=== PATIENT | male | born 1955 | race Caucasian/White ===

== ENCOUNTER 2019-04-13 12:08 | Emergency (ER) | payer MEDICARE, OTHER ==
[2019-04-13 16:09] LABS: ABS Basophils 0.1 10^3/ul (0-0.2); ABS Eosinophils 0.2 10^3/ul (0-0.6); ABS Lymphocytes 2.9 10^3/ul (1.0-4.8); ABS Monocytes 0.6 10^3/ul (0-0.8); ABS Neutrophils 4.6 10^3/ul (1.5-7.7); Eosinophil % 2.9 %; Hematocrit 43 % (42-52); Hemoglobin 15.1 g/dL (14.0-18.0); Lymphocyte % 34.5 %; Mean Corpuscular HGB Conc 35 g/dL (31-36); Mean Corpuscular Hemoglobin 33 pg (27-31); Mean Corpuscular Volume 93 fL (80-94); Mean Platelet Volume 6.9 fL (7.4-10.4); Nucleated Red Blood Cells % 0.1; Platelet Count 252 10^3/uL (150-450); Red Blood Count 4.65 10^6 /uL (4.18-5.48); Red Cell Distribution Width 16 % (10-15); White Blood Count 8.4 10^3/uL (3.5-10.8)
--- NOTE | 2019-04-13 16:30 | ED ---
Complex/Multi-Sys Presentation - HPI Summary HPI Summary: This pt is a 64 y/o M presenting to [facility] with a CC of a large amount of weight gain since Thursday04/06/19. He has been gaining weight all month but it has increased over the past week. On Thursday04/10/19 the pt fell and grabbed the fire pit to break his fall. Later that night he felt fatigued and then developed neck pain which is rated a 7/10 in severity. He has swelling in his neck, arms and legs. The pt stated that the swelling in his legs and arms are the worse. He denies any N/V/D, CP, abdominal pain, fevers, and chills. He has no aggravating and alleviating symptoms. He has a PMHx of chronic SOB. - History Of Current Complaint Chief Complaint: EDNeckComplaint Time Seen by Provider: 04/13/19 15:07 Hx Obtained From: Patient Onset/Duration: Gradual Onset, Lasting Weeks - weight gain has exsisted for around a month, Still Present, Worse Since - 04/06/19 Timing: Constant Severity Currently: Moderate Severity Initially: Mild Location: Pain At: - neck since yesterday 04/12/19, rated a 7/10 Character: Typical Headache Aggravating Factor(s): nothing Alleviating Factor(s): nothing Associated Signs And Symptoms: Positive: Confusion, Dizziness, Headache, SOB - chronic, Other - POSITIVE: feels like thought process is off, numbness radiating down upper body, blurry vision, decreased sense of balance, swelling in his neck, arm, and legs. Negative: Chest Pain, Nausea, Vomiting, Diarrhea, Abdominal Pain, Fever - Allergies/Home Medications Allergies/Adverse Reactions: Allergies Allergy/AdvReac Type Severity Reaction Status Date / Time acetaminophen Allergy GI Upset Verified 04/13/19 12:19 [From Darvocet-N] meperidine [From Demerol] Allergy GI Upset Verified 04/13/19 12:19 propoxyphene Allergy GI Upset Verified 04/13/19 12:19 [From Darvocet-N] Home Medications: Home Medications Albuterol HFA INHALER* [Ventolin HFA Inhaler*] 1 puff INH Q6H PRN 04/13/19 [ History Confirmed 04/13/19] Apixaban* [Eliquis*] 5 mg PO BID 04/13/19 [History Confirmed 04/13/19] Aspirin EC TAB* [Ecotrin EC Low Dose 81 MG*] 81 mg PO DAILY 04/13/19 [History Confirmed 04/13/19] Gabapentin CAP(*) [Neurontin 100 mg CAP(*)] 400 mg PO TID 04/13/19 [History Confirmed 04/13/19] Isosorbide Mononitrate ER TAB* [Imdur ER TAB*] 30 mg PO DAILY 04/13/19 [History Confirmed 04/13/19] Methimazole TAB* [Tapazole TAB*] 10 mg PO BID 04/13/19 [History Confirmed ] Omeprazole CAP (NF) [Prilosec CAP* 20 MG] 20 mg PO BID 04/13/19 [History Confirmed 04/13/19] Rosuvastatin (NF) [Crestor] 20 mg PO DAILY 04/13/19 [History Confirmed 04/13/19] Spironolactone TAB* [Aldactone TAB*] 25 mg PO DAILY 04/13/19 [History Confirmed 04/13/19] Tiotropium Brom/Olodaterol(NF) [Stiolto Respimat Inh [place] (60 puff)(NF)] 1 puff INH BID 04/13/19 [History Confirmed 04/13/19] PMH/Surg Hx/FS Hx/Imm Hx Previously Healthy: No Endocrine/Hematology History: Reports: Hx Thyroid Disease - dx 2013, appt today to discuss Denies: Hx Diabetes Cardiovascular History: Reports: Hx Angina, Hx Hypertension Respiratory History: Reports: Hx Sleep Apnea Denies: Hx Asthma, Hx Chronic Obstructive Pulmonary Disease (COPD) GI History: Reports: Hx Gastroesophageal Reflux Disease, Hx Ulcer History: Reports: Other Problems/Disorders - nocturnal frequency Musculoskeletal History: Reports: Hx Back Problems Sensory History: Reports: Hx Contacts or Glasses Opthamlomology History: Reports: Hx Contacts or Glasses - Surgical History Surgery Procedure, Year, and Place: cardiac cath w/ stents April 2013 Hx Anesthesia Reactions: No - Immunization History Date of Tetanus Vaccine: Unknown Date of Influenza Vaccine: unknown Immunizations Up to Date: Yes Infectious Disease History: No Infectious Disease History: Denies: Hx Hepatitis, Hx Human Immunodeficiency Virus (HIV), Traveled Outside the [place] in Last 30 Days - Family History Known Family History: Positive: Hypertension - Social History Alcohol Use: None Hx Substance Use: No Substance Use Type: Reports: None Hx Tobacco Use: Yes Smoking Status (MU): Former Smoker Type: eCigarettes Amount Used/How Often: Less then 1/2 PPD Length of Time of Smoking/Using Tobacco: quit cigarettes 2 months ago; using electronic cigarettes currently Have You Smoked in the Last Year: No Review of Systems Positive: Other - Positive: decreased sense of balance. Negative: Fever, Chills Positive: Blurred Vision Positive: Other - Neck pain Negative: Chest Pain Positive: Shortness Of Breath - Chronic Negative: Abdominal Pain, Vomiting, Diarrhea, Nausea Positive: Edema - Arms, legs, neck Neurological: Other - POSITVIE: dizziness Positive: Headache, Numbness - radiates down his upper body bilaterally All Other Systems Reviewed And Are Negative: Yes Physical Exam - Summary Physical Exam Summary: Constitutional: Well-developed, Well-nourished, Alert. (-) Distressed Skin: Warm, Dry HENT: Normocephalic; Atraumatic Eyes: Conjunctiva normal Neck: Musculoskeletal ROM normal neck. (-) JVD, (-) Stridor, (-) Tracheal deviation Cardio: Rhythm regular, rate normal, Heart sounds normal; Intact distal pulses; The pedal pulses are 2+ and symmetric. Radial pulses are 2+ and symmetric. (-) Murmur Pulmonary/Chest wall: Effort normal. (-) Respiratory distress, (-) Wheezes, (-) Rales Abd: Soft, (-) tenderness, (-) Distension, (-) Guarding, (-) Rebound Musculoskeletal: Edema of arms and 1+ pitting edema of the legs, C6 and T1-4 tenderness to palpation, Bilateral posterior neck muscle wall is tender to palpation Lymph: (-) Cervical adenopathy Neuro: Alert, Oriented x3 Psych: Mood and affect Normal Triage Information Reviewed: Yes Vital Signs On Initial Exam: Initial Vitals Temp Pulse Resp BP Pulse Ox 97.8 F 68 16 112/80 96 04/13/19 12:13 04/13/19 12:13 04/13/19 12:13 04/13/19 12:13 04/13/19 12:13 Vital Signs Reviewed: Yes Diagnostics - Vital Signs Vital Signs Temp Pulse Resp BP Pulse Ox 04/13/19 14:30 98 F 61 16 96/58 97 04/13/19 12:13 97.8 F 68 16 112/80 96 - Laboratory Lab Results: Lab Results 04/13/19 Range/Units 16:01 WBC 8.4 (3.5-10.8) 10^3/uL RBC 4.65 (4.18-5.48) 10^6 /uL Hgb 15.1 (14.0-18.0) g/dL Hct 43 (42-52) % MCV 93 (80-94) fL MCH 33 H (27-31) pg MCHC 35 (31-36) g/dL RDW 16 H (10-15) % Plt Count 252 (150-450) 10^3/uL MPV 6.9 L (7.4-10.4) fL Neut % (Auto) 55.0 % Lymph % (Auto) 34.5 % [place] % (Auto) 6.8 % Eos % (Auto) 2.9 % Baso % (Auto) 0.8 % Absolute Neuts (auto) 4.6 (1.5-7.7) 10^3/ul Absolute Lymphs (auto) 2.9 (1.0-4.8) 10^3/ul Absolute Monos (auto) 0.6 (0-0.8) 10^3/ul Absolute Eos (auto) 0.2 (0-0.6) 10^3/ul Absolute Basos (auto) 0.1 (0-0.2) 10^3/ul Absolute Nucleated RBC 0.0 10^3/ul Nucleated RBC % 0.1 Result Diagrams: 04/13/19 16:01 04/13/19 16:01 Lab Statement: Any lab studies that have been ordered have been reviewed, and results considered in the medical decision making process. - Radiology Thoacic Spine X-Ray Radiology Interpretation Completed By: Radiologist Summary of Radiographic Findings: DEGENERATIVE DISC DISEASE. THE VERTEBRAL BODIES ARE PRESERVED IN HEIGHT. ED physician has reviewed this report. CXR Radiology Interpretation Completed By: Radiologist Summary of Radiographic Findings: NO EVIDENCE FOR ACTIVE CARDIOPULMONARY DISEASE. ED physician has reviewed this report. - CT Cervical Spine CT CT Interpretation Completed By: Radiologist Summary of CT Findings: 1. DEGENERATIVE DISC DISEASE AND OSTEOARTHRITIS. 2. THERE IS MULTILEVEL NEUROFORAMINAL NARROWING DESCRIBED ABOVE. 3. THERE IS MILD NARROWING OF THE CENTRAL CANAL AT C4-C5. 4. NO ACUTE OSSEOUS INJURY TO THE CERVICAL SPINE. ED Physician has reviewed this report. Brain CT CT Interpretation Completed By: Radiologist Summary of CT Findings: NO EVIDENCE FOR ACUTE INTRACRANIAL ABNORMALITY. ED physician has reviewed this report. Head CT CT Interpretation Completed By: Radiologist Summary of CT Findings: No acute findings. ED physician has reviewed this report. - EKG 1642 Cardiac Rate: NL - 62 bpm EKG Rhythm: Atrial Fibrillation Summary of EKG Findings: AFIB at 62 bpm, prolonged QRS, prolonged QTc, normal axis, normal ST, flattened T-waves in V6. Overall: AFIB non-specific. Interpreted by Dr. Wadsworth at 1642 04/13/19. Re-Evaluation - Re-Evaluation First Eval Re-Evaluation Time: 20:18 Change: Improved Comment: Pt was informed of his imaging results and lab vaules. He will be discharged with a Dx of a neck sprain and SOB. The pt and his are agreeable. Complex Multi-Symp Course/Dx Course Of Treatment: This pt is a 64 y/o M presenting to [facility] with a CC of a large amount of weight gain since Thursday04/06/19. He has been gaining weight all month but it has increased over the past week. On Thursday04/10/19 the pt fell and grabbed the fire pit to break his fall. Later that night he felt fatigued and then developed neck pain which is rated a 7/10 in severity. Upon PE the pt is found to have Edema of arms and 1+ pitting edema of the legs, C6 and T1-4 tenderness to palpation, and bilateral posterior neck muscle wall is tender to palpation. The pt received the following imaging reports during his ED course: Thoracic Spine X-Ray which found: DEGENERATIVE DISC DISEASE. THE VERTEBRAL BODIES ARE PRESERVED IN HEIGHT. CXR: NO EVIDENCE FOR ACTIVE CARDIOPULMONARY DISEASE. Cervical Spine CT: 1. DEGENERATIVE DISC DISEASE AND OSTEOARTHRITIS. 2. THERE IS MULTILEVEL NEUROFORAMINAL NARROWING DESCRIBED ABOVE. 3. THERE IS MILD NARROWING OF THE CENTRAL CANAL AT C4-C5. 4. NO ACUTE OSSEOUS INJURY TO THE CERVICAL SPINE. Brain CT: NO EVIDENCE FOR ACUTE INTRACRANIAL ABNORMALITY. Head CT: No acute findings. EKG showed AFIB at 62 bpm, prolonged QRS, prolonged QTc, normal axis, normal ST, flattened T-waves in V6. Overall: AFIB non-specific. The pt will be discharged with SOB, hyperthyroidism, and a neck sprain since all of his imaging came back negative. The pt had a high TSH value which coincides with his chronic issues. 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 - Billing Disposition and Condition Condition: STABLE Disposition: Home - Attestation Statements Document Initiated by Mariana: Yes Documenting Scribe: Surjit Sorenson Provider For Whom Mariana is Documenting (Include Credential): Luz De Guzman MD Scribe Attestation: ISurjit, scribed for Luz Wadsworth MD on 04/13/19 at 2229. Scribe Documentation Reviewed: Yes Provider Attestation: The documentation as recorded by the Surjit donald accurately reflects the service I personally performed and the decisions made by me, Luz Wadsworth MD Status of Scribe Document: Viewed
[2019-04-13 16:55] LABS: Albumin 4.4 g/dL (3.2-5.2); Albumin/Globulin Ratio 2.1 (1-3); Calcium 9.4 mg/dL (8.6-10.3); EGFR African American 103.5 (>60); EGFR Non-African American 85.5 (>60); Globulin 2.1 g/dL (2-4); Potassium 4.5 mmol/L (3.5-5.0); Total Bilirubin 0.6 mg/dL (0.2-1.0); Total Protein 6.5 g/dL (6.4-8.9)
[2019-04-13 16:57] LABS: TSH (Thyroid Stimulating Horm) 37.38 mcIU/mL (0.34-5.60)
[2019-04-13] MEDS: Iohexol 350* (CONTRAST) 500 ML MDV IV ONE (18:55)
[2019-04-13 21:14] VITALS: BP 120/92
== END 2019-04-13 21:13 | disposition home or self-care (01) ==
LOC: ED 12:08
DX: S16.1XXA Strain of muscle, fascia and tendon at neck level, initial encounter (principal); R06.02 Shortness of breath; W19.XXXA Unspecified fall, initial encounter; E07.9 Disorder of thyroid, unspecified; I10 Essential (primary) hypertension; Z87.891 Personal history of nicotine dependence; Z79.899 Other long term (current) drug therapy; M51.34 Other intervertebral disc degeneration, thoracic region; M50.30 Other cervical disc degeneration, unspecified cervical region; M47.892 Other spondylosis, cervical region
CPT/HCPCS: 36415; 70450; 70496; 70498; 71045; 72070; 72125; 80053; 83605; 83880; 84443; 84484; 85025; 93005; 99283; Q9967

== ENCOUNTER 2019-07-13 07:59 | Emergency (ER) | payer MEDICARE ==
[2019-07-13] MEDS: Albuterol/Ipratropium NEB.SOL* Albuterol 2.5 MG/Ipratropium 0.5 MG 3 ML INH SCH ×3 (08:00→08:40)
[2019-07-13] MEDS ORDERED: NS 0.9% 1000 ML** 1,000 ML IV ONE (08:01)
[2019-07-13] MEDS ORDERED: methylPREDNISolone 125 MG* 2 ML VIAL IV ONE (08:01)
[2019-07-13] MEDS ORDERED: Albuterol/Ipratropium NEB.SOL* Albuterol 2.5 MG/Ipratropium 0.5 MG 3 ML ONE (08:01)
--- OUTSIDE RECORDS SUMMARY | 2019-07-13 08:18 | XMS REPORT | Continuity of Care Document ---
:1955 External Reference #:[id number] Author Name Triston Jara M.D. Address [address] [place] [address] Care Team Providers Name Role Phone Ethan Davis MD - Internal Care Team Information Stave Hewer [phone] Medicine Problems Active Problems Provider Date Essential hypertension Triston Jara M.D. Onset: 06/26/2015 Recurrent cholesteatoma of mastoid Triston Jara M.D. Onset: 2018 cavity Recurrent cholesteatoma of mastoid Triston Jara M.D. Onset: 2015 cavity Perforation of tympanic membrane Triston Jara M.D. Onset: 06/26/2015 Chronic mastoiditis Triston Jara M.D. Onset: 06/26/2015 Social History Type Date Description Comments Sex Unknown Tobacco Use Start: Unknown Current Cigarette Smoker 5-10 Cigarettes Daily Tobacco Use Start: Unknown has been off and on for years Smoking Status Reviewed: 07/11/19 has been off and on for years Tobacco Use Start: Unknown Never Smoked Cigars Tobacco Use Start: Unknown Never Smoked A Pipe Smokeless Tobacco Never Used Smokeless Tobacco ETOH Use Currently rarely consumes alcohol Tobacco Use Start: Unknown Patient is a current smoker, smokes every day Allergies, Adverse Reactions, Alerts Description No Known Drug Allergies Medications Active Medications SIG Qnty Indications Ordering Provider Date Aspirin Low Dose 1 by mouth every Darlow, Juni 81mg Tablets day M.D. Atorvastatin Calcium 1 by mouth every Darlow, Juni 20mg day M.D. Tablets Carvedilol 2 by mouth every Darlow, Juni 6.25mg Tablets day M.D. Cymbalta 1 by mouth every Darlow, Juni 60mg Caps DR Part day M.D. Lisinopril 1 by mouth every Darlow, Juni 10mg Tablets day M.D. [facility] Caps[facility] M.D. Spironolactone 1 by mouth every Darlow, Juni 25mg Tablets day M.D. Pepcid [facility] 20[facility] Tablets a day M.D. Nitroglycerin ER as needed [facility], Juni 0.4mg M.D. Capsules ER Methimazole Unknown 10mg Tablets Gabapentin Unknown 400mg Capsules Baclofen Unknown 10mg Tablets Immunizations CPT Code Status Date Vaccine Lot # [id number] Given Unknown Influenza Virus Vaccine, 3 Years Of Age And Above, Intramuscular Vital Signs Date Vital Result Comment 08/13/2016 3:15pm BP Systolic 149 mmHg BP Diastolic 92 mmHg Heart Rate 70 /min Respiratory Rate 17 /min Weight 191.00 lb Weight 86.638 kg Height 72 inches 6'0" Height in cm's 182.9 cm BMI (Body Mass Index) 25.9 kg/m2 06/26/2015 4:01pm BP Systolic 133 mmHg BP Diastolic 86 mmHg Heart Rate 69 /min Respiratory Rate 17 /min Weight 191.00 lb Weight 86.638 kg Height 72 inches 6'0" Height in cm's 182.9 cm BMI (Body Mass Index) 25.9 kg/m2 Results Description No Information Available Procedures Date Code Description Status 07/11/2019 98303 Debridement Of Mastoid Cavity, Simple Completed Medical Devices Description No Information Available Encounters Description No Information Available Assessments Date Code Description Provider 07/11/2019 H95.01 Recurrent cholesteatoma of Triston Jara M.D. postmastoidectomy cavity, right ear 07/11/2019 H91.93 Unspecified hearing loss, bilateral Triston Jara M.D. Plan of Treatment 07/11/2019 - Triston Jara M.D.H95.01 Recurrent cholesteatoma of postmastoidectomy cavity, right earComments:I debrided the right mastoid without difficulty.H91.93 Unspecified hearing loss, bilateralComments:The patient has been having progressive hearing loss. Our last test was in 1999. I suspect the majority of his further loss is from sensorineural loss bu there could be a conductive component in the right side as well. I will order an audiogram.Follow up: for ALEJANDRA next available. Functional Status Description No Information Available Mental Status Description No Information Available Referrals Description No Information Available
--- OUTSIDE RECORDS SUMMARY | 2019-07-13 08:19 | XMS REPORT | Continuity of Care Document ---
:1955 External Reference #:[id number] Author Name Jimbo Pastora Care Team Providers Name Role Phone Ethan Davis MD Primary Care Physician Unavailable Payers Date Identification Numbers Payment Provider Subscriber Policy Number: [id number] [employer] Philip Montenegro Group Number: [id number] [address] PayID: [id number] [place] [address] Effective: 2014 Policy Number: [id number] [facility] Medicare Solutions Philip Montenegro Expires: 2018 Group Number: [id number] [address] [address] PayID: [id number] [place] [address] Problems Active Problems Provider Date Coronary arteriosclerosis Franchesca Hahn D.O. Onset: 07/09/2011 Old myocardial infarction Franchesca Hahn D.O. Onset: 10/29/2011 Essential hypertension Torrie Jay, N.PKelli Onset: 04/05/2012 Mixed hyperlipidemia Torrie Jay, N.PKelli Onset: 04/05/2012 Coronary arteriosclerosis Franchesca Hahn D.O. Onset: 10/05/2012 Acute myocardial infarction of inferior Franchesca Hahn D.O. Onset: 2012 [facility] ECHO Schedule Onset: 11/18/2013 Family History Date Family Member(s) Observation Comments Father due to Accident () - auto Father due to Hypertension () Father due to pacemaker () Father due to Arthritis () Father due to Cancer () Mother due to Diabetes () Mother due to DC () - age 58 yrs Mother due to hyperlipidemia () First Son parapalegic Second Son Alive And Well First Daughter Alive And Well Siblings 1 1 sister, cancer, thyroid disease and diabetes First Brother Unknown Second Brother Unknown Third Brother mental illness in a long term First Sister Alive And Well Second Sister Benign Prostatic Hypertrophy Second Sister Cancer Second Sister Diabetes, Non Insulin Dependent Second Sister Hypertension Paternal Grandfather due to Cancer () Paternal Grandfather due to Cancer, Colon () Social History Type Date Description Comments Sex Unknown Marital Status Lives With Spouse 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 ETOH Use Rarely consumes alcohol had a problem with ETOH abuse 1993 Tobacco Use Start: Unknown Patient is a current smoker, smokes some days Recreational Drug Use Denies Drug Use Smoking Status Reviewed: 06/02/19 Patient is a current smoker, smokes some days Enjoy Exercising Enjoys exercising walks daily 1/4 mile Exercise Type/Frequency Exercises regularly walk 1/4 mile daily Allergies, Adverse Reactions, Alerts Active Allergies Reaction Severity Comments Date Darvon swelling 07/09/2011 Darvocet swelling 07/09/2011 Bee Sting 05/15/2014 Medications Active Medications SIG Qnty Indications Ordering Date Provider Nitrostat one sl q5min up to 1bottle Qutaybeh S. 05/25/2013 0.4mg Tablets 3 doses as needed Beatrice Buck Sub Stiolto Respimat 1 puff by mouth Unknown twice a day 2.5-2.5mcg/Act Aerosol Gabapentin take one capsule Unknown 400mg by mouth 3 times a Capsules day Isosorbide 1 by mouth every Unknown Mononitrate ER day 30mg Tablets ER 24HR Eliquis 1 by mouth twice a Unknown 5mg Tablets day Rosuvastatin Calcium 1 by mouth every Unknown day 20mg Tablets Omeprazole 1 by mouth every Unknown 40mg day Capsules DR Ventolin HFA 1 to 2 inhalations Unknown every 4 hours as 108(90Base) mcg/Act needed Aerosol Antacid Double as needed Unknown Strength 700-300mg Chewtabs Cymbalta 1 by mouth every Unknown 30mg Caps DR day (take with 60 Part mg pill) Spironolactone 1 by mouth every 90tabs Qutaybeh S. 25mg day Beatrice Buck Tablets Cymbalta 1 po qd (take with 30caps Unknown 60mg Caps 30 mg pill) Part Lisinopril 1 tablet daily Unknown 10mg Tablets Carvedilol 1 po bid 200tabs Unknown 6.25mg Tablets Aspirin 1 po qd 50tabs Unknown 81mg Tablets History Medications Norvasc 1 by mouth every 30tabs Sonutamonae S. 02/13/2015 - 5mg Tablets day Beatrice Buck Unknown Methimazole 1 by mouth twice 30tabs Sonutamonae S. 12/07/2014 - 10mg Tablets daily Beatrice Buck 05/04/2019 Protonix 1 tablet daily 30tabs Franchesca Hahn, 11/09/2013 - 40mg Tablets DR Cisneros 05/15/2014 Nitroglycerin 1 under tounge, 1bottle Other Ordering 05/24/2013 - 0.4mg/HR may repeat 3x Provider 05/25/2013 Patches 24HR Atorvastatin Calcium take 1 tablet at 90tabs Franchesca Hahn, 2012 - 20mg bedtime D.O. 06/01/2019 Tablets Plavix 1 po qd 100tabs Franchesca Hahn, 05/11/2013 - 75mg Tablets D.O. Unknown Pepcid 1 po daily 30tabs Franchesca Hahn, 05/11/2013 - 20mg Tablets D.O. 11/09/2013 Pepcid 40 mg by mouth Unknown - 40mg Tablets every night at Unknown bedtime Pepcid 1 by mouth every 90tabs Unknown - 20mg Tablets day 01/30/2015 Spironolactone Take One Tablet 30tabs Franchesca Hahn, - 25mg Tablets By Mouth Every D.O. 05/15/2014 Day Omeprazole 1 po qd 90caps Unknown - 20mg Capsules 05/24/2013 Simvastatin Unknown - 80mg Tablets 05/24/2013 Fentanyl apply 25 mg/hr 10units Unknown - 25mg/HR +12 mg/HR +12 mg/hr patch 06/01/2019 Patches 72HR once every 3 days Lyrica 1 po tid 10caps Unknown - 50mg Capsules Unknown Plavix 1 po qd 30tabs Franchesca Hahn, - 75mg Tablets D.O. 04/05/2012 Isosorbide Dinitrate po qd Unknown - 30mg 10/29/2011 Tablets Famotidine every day Unknown - 20mg Tablets 10/05/2012 Fentanyl apply one patch 10units Unknown - 25mcg/HR Patches once every 3 10/29/2011 72HR days Pravastatin Sodium 1 tablet daily 30tabs Unknown - 40mg at bedtime 04/15/2012 Tablets Medications Administered in Office Medication SIG Qnty Indications Ordering Provider Date Inj, Regadenoson, 0.1 MG Greg Walters M.D., 01/18/2015 Injection NALLELY GODINEZ Inj, Regadenoson, 0.1 MG Sonutaybeh SKelli Buck, 01/18/2015 Injection M.DKelli Technetium TC 99M Greg Walters M.D., 01/18/2015 Tetrofosmin, Per Unit Dose NALLELY GODINEZ Up To 40 Millicuries Injection Technetium TC 99M Qutaybeh S. Magkyle, 01/18/2015 Tetrofosmin, Per Unit Dose M.D. Up To 40 Millicuries Injection Vital Signs Date Vital Result Comment 06/02/2019 9:23am Height 72 inches 6'0" Weight 221.00 lb w/ shoes Heart Rate 71 /min BP Systolic Sitting 140 mmHg BP Diastolic Sitting 91 mmHg BMI (Body Mass Index) 30.0 kg/m2 02/13/2015 10:51am Height 72 inches 6'0" Weight 192.00 lb Heart Rate 74 /min BP Systolic 122 mmHg LA reg BP Diastolic 76 mmHg LA reg BMI (Body Mass Index) 26.0 kg/m2 01/30/2015 12:00pm Height 72 inches 6'0" Weight 196.00 lb Heart Rate 60 /min BP Systolic Sitting 130 mmHg LA, reg BP Diastolic Sitting 80 mmHg LA, reg BMI (Body Mass Index) 26.6 kg/m2 12/07/2014 2:06pm Height 72 inches 6'0" Weight 194.00 lb Heart Rate 50 /min BP Systolic Sitting 140 mmHg LA, reg BP Diastolic Sitting 98 mmHg LA, reg BMI (Body Mass Index) 26.3 kg/m2 05/15/2014 8:30am Height 72 inches 6'0" Weight 187.00 lb Heart Rate 51 /min BP Systolic Sitting 114 mmHg BP Diastolic Sitting 84 mmHg BMI (Body Mass Index) 25.4 kg/m2 11/09/2013 10:53am Height 72 inches 6'0" Weight 197.00 lb Heart Rate 60 /min Regular BP Systolic Sitting 106 mmHg BP Diastolic Sitting 72 mmHg BMI (Body Mass Index) 26.7 kg/m2 05/25/2013 2:22pm Height 72 inches 6'0" Weight 199.25 lb Heart Rate 72 /min BP Systolic Sitting 142 mmHg BP Diastolic Sitting 76 mmHg BMI (Body Mass Index) 27.0 kg/m2 10/05/2012 2:08pm Height 72 inches 6'0" Weight 215.25 lb Heart Rate 76 /min BP Systolic Sitting 118 mmHg BP Diastolic Sitting 88 mmHg BMI (Body Mass Index) 29.2 kg/m2 04/05/2012 10:02am Height 72 inches 6'0" Weight 209.00 lb Heart Rate 68 /min BP Systolic 122 mmHg BP Diastolic 80 mmHg Respiratory Rate 16 /min BMI (Body Mass Index) 28.3 kg/m2 10/29/2011 10:57am Height 72 inches 6'0" Weight 207.00 lb Heart Rate 59 /min BP Systolic Sitting 138 mmHg BP Diastolic Sitting 88 mmHg BMI (Body Mass Index) 28.1 kg/m2 07/09/2011 10:10am Height 72 inches 6'0" Weight 207.00 lb Heart Rate 60 /min BP Systolic 100 mmHg BP Diastolic 70 mmHg BP Systolic Sitting 110 mmHg BP Diastolic Sitting 70 mmHg BP Systolic Standing 120 mmHg BP Diastolic Standing 80 mmHg Respiratory Rate 16 /min BMI (Body Mass Index) 28.1 kg/m2 Results Test Date Facility Test Result H/L Range Note Basic Metabolic 02/05/2015 [facility] Sodium 135 mmol/L Normal 133-[address] [place] [address] [phone] Potassium 4.4 mmol/L Normal 3.5-5.0 Chloride 100 mmol/L Low 101-111 Co2 Carbon Dioxide 30 mmol/L Normal 22-32 Anion Gap 5 mmol/L Normal 2-11 Glucose 120 mg/dL High 70-100 Blood Urea Nitrogen 18 mg/dL Normal 6-24 Creatinine 0.91 mg/dL Normal 0.67-1.17 BUN/Creatinine Ratio 19.8 Normal 8-20 Calcium 10.0 mg/dL Normal 8.6-10.3 Egfr Non- 85.9 Normal >60 Egfr 110.4 Normal >60 1 CBC Auto 02/05/2015 [facility] White Blood 6.7 10^3/uL Normal 4.8-10.[address] [place] [address] [phone] Red Blood Count 4.69 10^6/uL Normal 4.0-5.4 Hemoglobin 15.0 g/dL Normal 14.0-18.0 Hematocrit 43 % Normal 42-52 Mean Corpuscular Volume 92 fL Normal 80-94 Mean Corpuscular Hemoglobin 32 pg High 27-31 Mean Corpuscular HGB Conc 35 g/dL Normal 31-36 Red Cell Distribution Width 13 % Normal 10.5-15 Platelet Count 316 10^3/uL Normal 150-450 Mean Platelet Volume 7 um3 Low 7.4-10.4 Abs Neutrophils 4.0 10^3/uL Normal 1.5-7.7 Abs Lymphocytes 1.8 10^3/uL Normal 1.0-4.8 Abs Monocytes 0.6 10^3/uL Normal 0-0.8 Abs Eosinophils 0.3 10^3/uL Normal 0-0.6 Abs Basophils 0.1 10^3/uL Normal 0-0.2 Abs Nucleated RBC 0 10^3/uL Normal Granulocyte % 59.7 % Normal 38-83 Lymphocyte % 27.0 % Normal 25-47 Monocyte % 8.3 % Normal 1-9 Eosinophil % 4.0 % Normal 0-6 Basophil % 1.0 % Normal 0-2 Nucleated Red Blood Cells % 0 Normal Inr/Protime 02/05/2015 [facility] Inr 0.99 Normal 0.78-1.[address] [place] [address] [phone] Basic Metabolic 06/13/2014 [facility] Sodium 140 mmol/L Normal 133-[address] [place] [address] [phone] Potassium 3.9 mmol/L Normal 3.7-5.6 Chloride 108 mmol/L Normal 101-111 Co2 Carbon Dioxide 27 mmol/L Normal 22-32 Anion Gap 5 mmol/L Normal 2-11 Glucose 100 mg/dL Normal 70-100 Blood Urea Nitrogen 17 mg/dL Normal 6-24 Creatinine 0.76 mg/dL Normal 0.67-1.17 BUN/Creatinine Ratio 22.4 High 8-20 Calcium 9.6 mg/dL Normal 8.6-10.3 Egfr Non- 105.7 Normal >60 Egfr 136.0 Normal >60 2 Lipid Profile 10/31/2013 [facility] Triglycerides 184 mg/dL 40-200 (Trig/Chol/HDL) [address] [place] [phone] Cholesterol 128 mg/dL Less than 200 HDL Cholesterol 30 mg/dL Low 40-60 3 Cholesterol/HDL Ratio 4.3 Average 1-4.44 LDL Cholesterol 61.2 Less Than 100 4 Laboratory test finding 10/31/2013 [facility] Ast 17 U/L 12- [address] [place] [phone] Alt 17 U/L 14-54 6 Urinalysis W/Microscopic 05/25/2013 [facility] Urine Color Yellow [address] [place] [address] [phone] Urine Appearance Clear Urine Specific [place] 1.027 1.010-1.030 Urine Esterase Negative Negative Urine Nitrate Negative Negative Urine Urobilinogen Negative E.U./dL Negative Urine Protein Negative mg/dL Negative Urine pH 5.5 5-9 Urine Blood Negative Negative Urine Ketones Negative mg/dL Negative Urine Bilirubin Negative Negative Urine Glucose Negative mg/dL Negative Urine WBC 1+ (<3 /hpf) None Seen Urine RBC None Seen None Seen Urine Mucus Present /lpf Absent Bacteria Urine None Seen None Seen CBC With 05/25/2013 [facility] White Blood 7.9 10^3/uL 4.8- 10.[address] [place] [address] [phone] Red Blood Count 4.86 10^6/uL 4.0-5.4 Hemoglobin 13.9 g/dL Low 14.0-18.0 Hematocrit 42 % 42-52 Mean Corpuscular Volume 86 fL 80-94 Mean Corpuscular Hemoglobin 29 pg 27-31 Mean Corpuscular HGB Conc 33 g/dL 31-36 Red Cell Distribution Width 13 % 10.5-15 Platelet Count 383 10^3/uL 150-450 Mean Platelet Volume 7 um3 Low 7.4-10.4 Abs Neutrophils 5.4 10^3/uL 1.5-7.7 Abs Lymphocytes 1.7 10^3/uL 1.0-4.8 Abs Monocytes 0.5 10^3/uL 0-0.8 Abs Eosinophils 0.2 10^3/uL 0-0.6 Abs Basophils 0.1 10^3/uL 0-0.2 Abs Nucleated RBC 0 10^3/uL Neutrophil % 69 % 38-83 Band % 4 % 0-8 Lymphocytes % 23 % Low 25-47 Monocytes % 2 % 0-13 Eosinophils % 1 % 0-6 Reactive Lymph % 1 % 0-6 RBC Morphology Normal Normal Basic Metabolic Panel 05/25/2013 [facility] Sodium 141 mmol/L 133-145 [address] [place] [address] [phone] Potassium 4.3 mmol/L 3.5-5.0 Chloride 104 mmol/L 101-111 Co2 Carbon Dioxide 27.0 mmol/L 22-32 Anion Gap 10.0 mmol/L 2-11 Glucose 94 mg/dL 70-100 Blood Urea Nitrogen 17 mg/dL 6-24 Creatinine 0.90 mg/dL 0.50-1.40 BUN/Creatinine Ratio 18.9 8-20 Calcium 9.9 mg/dL 8.1-9.9 Egfr Non- 87.3 >60 Egfr 112.3 >60 7 Lipid Profile 10/01/2012 [facility] Triglycerides 150 mg/dL 40-200 (Trig/Chol/HDL) [address] [place] [address] [phone] Cholesterol 120 mg/dL Less than 200 HDL Cholesterol 29 mg/dL Low 40-60 8 Cholesterol/HDL Ratio 4.1 Average 1-4.44 LDL Cholesterol 61.0 mg/dL Less Than 100 9 Laboratory test finding 10/01/2012 [facility] Alt 44 U/L 14- 54 10 [address] [place] [address] [phone] Ast 28 U/L 12-42 11 Liver Function 03/26/2012 [facility] Total Protein 6.2 GM/DL 6.2-8.1 12 Panel [address] [place] [address] [phone] Albumin 4.0 GM/DL 3.6-5.4 Globulin 2.2 GM/DL 2-4 Albumin/Globulin Ratio 1.8 1-3 Bilirubin Total 0.8 mg/dL 0.4-1.5 13 Bilirubin Direct 0.1 mg/dL 0.1-0.5 Indirect Bilirubin 0.7 mg/dL 0.3-1.0 14 Alkaline Phosphatase 71 U/L 39-117 Alt (SGPT) 39 U/L 17-63 Ast (Sgot) 24 U/L 12-42 Lipid Profile 03/26/2012 [facility] Triglyceride 153 mg/dL 40 -200 (Trig/Chol/HDL) [address] [place] [address] [phone] Cholesterol 157 mg/dL Less Than 200 15 High Density Lipoprotein 32 mg/dL Low 40-60 16 Cholesterol/HDL Ratio 4.91 AVERAGE 1-4.97 Low Density Lipoprotein 94 mg/dL Less Than 100 17 Liver Function 07/19/2011 [facility] Total Protein 6.1 GM/DL Low 6.2-8.1 Panel [address] [place] [address] [phone] Albumin 4.0 GM/DL 3.6-5.4 Globulin 2.1 GM/DL 2-4 Albumin/Globulin Ratio 1.9 1-3 Bilirubin Total 0.8 mg/dL 0.4-1.5 18 Bilirubin Direct 0.1 mg/dL 0.1-0.5 Indirect Bilirubin 0.7 mg/dL 0.3-1.0 19 Alkaline Phosphatase 66 U/L 39-117 Alt (SGPT) 32 U/L 17-63 Ast (Sgot) 28 U/L 12-42 Lipid Profile 07/19/2011 [facility] Triglyceride 215 mg/dL High 40-200 (Trig/Chol/HDL) [address] [place] [address] [phone] Cholesterol 149 mg/dL Less Than 200 20 High Density Lipoprotein 31 mg/dL Low 40-60 21 Cholesterol/HDL Ratio 4.81 AVERAGE 1-4.97 Low Density Lipoprotein 75 mg/dL Less Than 100 22 1 Because ethnic data is not always readily available, this report includes an eGFR for both -Americans and non- Americans. The National Kidney Disease Education Program (NKDEP) does not endorse the use of the MDRD equation for patients that are not between the ages of 18 and 70, are , have extremes of body size, muscle mass, or nutritional status, or are non- or non-. According to the National Kidney Foundation, irrespective of diagnosis, the stage of the disease is based on the level of kidney function: Stage Description GFR(mL/min/1.73 m(2)) 1 Kidney damage with normal or decreased GFR 90 2 Kidney damage with mild decrease in GFR 60-89 3 Moderate decrease in GFR 30-59 4 Severe decrease in GFR 15-29 5 Kidney failure <15 (or dialysis) 2 Because ethnic data is not always readily available, this report includes an eGFR for both -Americans and non- Americans. The National Kidney Disease Education Program (NKDEP) does not endorse the use of the MDRD equation for patients that are not between the ages of 18 and 70, are , have extremes of body size, muscle mass, or nutritional status, or are non- or non-. According to the National Kidney Foundation, irrespective of diagnosis, the stage of the disease is based on the level of kidney function: Stage Description GFR(mL/min/1.73 m(2)) 1 Kidney damage with normal or decreased GFR 90 2 Kidney damage with mild decrease in GFR 60-89 3 Moderate decrease in GFR 30-59 4 Severe decrease in GFR 15-29 5 Kidney failure <15 (or dialysis) 3 HDL Interpretation: Undesirable: High Risk: Less than 40 mg/dL Desirable: Low Risk: Greater than 60 mg/dL 4 LDL Interpretation: Low Risk Optimal Level: LDL Less than 100 mg/dL Near or Above Optimal: LDL 100-129 mg/dL Borderline High Risk: LDL 130-159 mg/dL High Risk: LDL 160-189 mg/dL Very High Risk: LDL Greater than 189 mg/dL 5 FASTING 6 FASTING 7 Because ethnic data is not always readily available, this report includes an eGFR for both -Americans and non- Americans. The National Kidney Disease Education Program (NKDEP) does not endorse the use of the MDRD equation for patients that are not between the ages of 18 and 70, are , have extremes of body size, muscle mass, or nutritional status, or are non- or non-. According to the National Kidney Foundation, irrespective of diagnosis, the stage of the disease is based on the level of kidney function: Stage Description GFR(mL/min/1.73 m(2)) 1 Kidney damage with normal or decreased GFR 90 2 Kidney damage with mild decrease in GFR 60-89 3 Moderate decrease in GFR 30-59 4 Severe decrease in GFR 15-29 5 Kidney failure <15 (or dialysis) 8 HDL Interpretation: Undesirable: High Risk: Less than 40 MG/DL Desirable: Low Risk: Greater than 60 MG/DL 9 LDL Interpretation: Low Risk Optimal Level: LDL Less than 100 MG/DL Near or Above Optimal: LDL 100-129 MG/DL Borderline High Risk: LDL 130-159 MG/DL High Risk: LDL 160-189 MG/DL Very High Risk: LDL Greater than 189 MG/DL 10 FASTING 11 FASTING 12 FASTING 13 A metabolite of Naproxen, O-desmethylnaproxen, has been shown to interfere with the Jendrassik-Avinger method for measuring total bilirubin. Samples from patients who have taken Naproxen have shown spurious elevation in total bilirubin levels. 14 Please note updated reference range, effective 05/16/10 15 CHOLESTEROL INTERPRETATION: Desirable: Less than 200 MG/DL Borderline-High Risk: 200-239 MG/DL High-Risk: 240 MG/DL and over 16 HDL INTERPRETATION: Undesirable: High Risk: Less than 40 MG/DL Desirable: Low Risk: Greater than 60 MG/DL 17 LDL INTERPRETATION: Low Risk Optimal Level: LDL Less than 100 MG/DL Near or Above Optimal: LDL 100-129 MG/DL Borderline High Risk: LDL 130-159 MG/DL High Risk: LDL 160-189 MG/DL Very High Risk: LDL Greater than 189 MG/DL 18 A metabolite of Naproxen, O-desmethylnaproxen, has been shown to interfere with the Jendrassik-Avinger method for measuring total bilirubin. Samples from patients who have taken Naproxen have shown spurious elevation in total bilirubin levels. 19 Please note updated reference range, effective 05/16/10 20 CHOLESTEROL INTERPRETATION: Desirable: Less than 200 MG/DL Borderline-High Risk: 200-239 MG/DL High-Risk: 240 MG/DL and over 21 HDL INTERPRETATION: Undesirable: High Risk: Less than 40 MG/DL Desirable: Low Risk: Greater than 60 MG/DL 22 LDL INTERPRETATION: Low Risk Optimal Level: LDL Less than 100 MG/DL Near or Above Optimal: LDL 100-129 MG/DL Borderline High Risk: LDL 130-159 MG/DL High Risk: LDL 160-189 MG/DL Very High Risk: LDL Greater than 189 MG/DL Procedures Date Code Description Status 02/13/2015 02722 EKG Tracing & Interpretation Completed 02/08/2015 14134 Left Heart Cath. Incl S/I Coronaries, Angio S/I V Gram If Completed Done 01/30/2015 96153 EKG Tracing & Interpretation Completed 01/18/2015 67322 Treadmill Interp/Report Only Completed 01/18/2015 53635 Stress Test Supervsn W/Out I/R Completed 01/18/2015 09559 Stress Test Completed 01/18/2015 12791 Myocardial Perfusion Imaging Tomographic (Spect) Multiple Completed Studies 01/18/2015 83537 Myocardial Perfusion Imaging Tomographic (Spect) Multiple Completed Studies 01/04/2015 79742 Holter Monitor Review (24 hr)dr review & interp only Completed 01/04/2015 41694 ECG Monitor/Recording W/Visual Superimposition Scanning Completed 12/15/2014 74967 ECHO Transthoracic, Real-Time 2D With Doppler And Color Completed Flow 12/07/2014 64584 EKG Tracing & Interpretation Completed 05/15/2014 82151 EKG Tracing & Interpretation Completed 11/18/2013 78293 ECHO Transthoracic, Real-Time 2D With Doppler And Color Completed Flow 05/13/2013 94361 EKG, Interpretation Only Completed 05/12/2013 39527 Color Flow Doppler/Interp & Reprt Completed 05/12/2013 74844 Pulse Wave/Continuous-Interp.RPT Completed 05/12/2013 63016 ECHO Transthorasic Realtime 2D W Doppler & Color Flow Hosp Completed 05/12/2013 77890 EKG, Interpretation Only Completed 05/11/2013 06946 Left Heart Cath. Incl S/I Coronaries, Angio S/I V Gram If Completed Done 05/11/2013 95658 EKG, Interpretation Only Completed 05/11/2013 92426 Revascularization Acute Total/Subtotal Occlusion Completed 07/09/2011 11620 EKG Tracing & Interpretation Completed Encounters Type Date Location Provider Dx Diagnosis Office Visit 02/13/2015 [facility] Sonutaybkeyla S. 414.01 Coronary 11:00a Beatrice Buck Atherosclerosis [place] 786.05 Shortness Of Breath 401.1 Hypertension Benign 272.2 Hyperlipidemia Mixed 425.9 Cardiomyopathy Secondary Unspecified Office Visit 02/08/2015 12:13p [facility] Qutaybeh S. 786.50 Pain Chest Beatrice Buck Unspec 780.79 Malaise And Fatigue Other 786.05 Shortness Of Breath 794.39 Cardiovascular Study Other Abnormal Office Visit 01/30/2015 11:30a [facility] Marie Davis, 786.05 Shortness Of [place] Breath 780.4 Dizziness & Giddiness 414.01 Coronary Atherosclerosis [place] 401.1 Hypertension Benign 272.2 Hyperlipidemia Mixed 794.39 Cardiovascular Study Other Abnormal Office Visit 12/07/2014 2:00p [facility] Qutaybeh S. 780.79 Malaise And Beatrice Buck Fatigue Other 414.01 Coronary Atherosclerosis [place] 401.1 Hypertension Benign 272.2 Hyperlipidemia Mixed 794.31 Electrocardiogram (ECG) (EKG) Abnormal 425.9 Cardiomyopathy Secondary Unspecified 786.05 Shortness Of Breath 780.4 Dizziness & Giddiness Office Visit 05/15/2014 8:20a [facility] Qutaybeh S. 780.79 Malaise And Beatrice Buck Fatigue Other 414.01 Coronary Atherosclerosis [place] 401.1 Hypertension Benign 272.2 Hyperlipidemia Mixed 794.31 Electrocardiogram (ECG) (EKG) Abnormal 425.9 Cardiomyopathy Secondary Unspecified Office Visit 11/09/2013 10:40a [facility] Franchesca 786.05 Shortness Of [place] DKelliOKelli Breath 414.01 Coronary Atherosclerosis [place] 401.1 Hypertension Benign 272.2 Hyperlipidemia Mixed 305.1 Tobacco Use Disorder Office Visit 06/30/2013 Jennifer Sorensen 414.01 Coronary 2:00p Cardiology AT Blayne Hahn Atherosclerosis [facility] [place] 410.40 Myocardial Infarc Acute Other Infer Wall Episode CR Unspec 401.1 Hypertension Benign 272.2 Hyperlipidemia Mixed 305.1 Tobacco Use Disorder Office Visit 05/25/2013 2:20p [facility] Franchesca 410.40 Myocardial AT [facility] Blayne Hahn Infarc Acute Other Infer Wall Episode CR Unspec 414.01 Coronary Atherosclerosis [place] 401.1 Hypertension Benign 272.2 Hyperlipidemia Mixed Office Visit 05/13/2013 8:41a [facility] Franchesca 786.50 Pain Chest Selma D.O. Unspec 410.40 Myocardial Infarc Acute Other Infer Wall Episode CR Unspec 414.01 Coronary Atherosclerosis [place] 401.1 Hypertension Benign Office Visit 05/12/2013 8:40a [facility] Franchesca 786.50 Pain Chest Hahn, D.O. Unspec 410.40 Myocardial Infarc Acute Other Infer Wall Episode CR Unspec 414.01 Coronary Atherosclerosis [place] 401.1 Hypertension Benign Office Visit 05/11/2013 2:18p [facility] Michael Bishop, 786.50 Pain Chest Of Paco Barron, FAC, Unspec FSCAI 794.31 Electrocardiogram (ECG) (EKG) Abnormal 410.70 Myocardial Infarc Acute Subendocardial Episode Care Unspec 414.9 Ischemic Heart Disease Chronic Unspec Office Visit 10/05/2012 [place] Franchesca 414.01 Coronary 2:20p Cardiology AT Blayne Hahn Atherosclerosis [facility] [place] 401.9 Hypertension Unspec 272.2 Hyperlipidemia Mixed 412 Myocardial Infarction Old Office Visit 04/05/2012 [facility] Torrie 414.01 Coronary 10:00a Cardiology Pierre N.PKelli Atherosclerosis [place] 401.9 Hypertension Unspec 272.2 Hyperlipidemia Mixed Office Visit 10/29/2011 [facility] Franchesca 414.01 Coronary 11:00a Cardiology Blayne Hahn Atherosclerosis [place] 412 Myocardial Infarction Old V45.82 Percutaneous Transluminal Coronary Angioplas Postsurg Status 401.9 Hypertension Unspec 272.2 Hyperlipidemia Mixed Office Visit 07/09/2011 [place] 414.00 Coronary 9:40a Cardiology Blayne Hahn Atherosclerosis Unspec Type Vessel [place] 412 Myocardial Infarction Old V45.82 Percutaneous Transluminal Coronary Angioplas Postsurg Status 401.9 Hypertension Unspec 272.2 Hyperlipidemia Mixed Plan of Treatment 06/02/2019 - Jourdan Duran MDE05.00 Thyrotoxicosis with diffuse goiter without thyrotoxic crisis or stormInstructions:1. Blood tests today. 2. We will plan to restarted methimazole if you have hyperthyrodism. 3. We will consider iodine scan at [facility] if TSH is less than 0.5. 4. I recommend monthly blood test until your follow-up visit. 5. Return in August 2019. 6. Please read handouts given to you at today's visit.
--- NOTE | 2019-07-13 08:23 | ED ---
Shortness of Breath - HPI Summary HPI Summary: This patient is a 64 year old M CHADD via EMS to ED with a chief complaint of difficulty breathing since three days ago worsening this morning. Patient states he has a respiratory infection that he is fighting. Upon EMS arrival, patient had an O2 sat of 90% on 2L O2. Patient was wearing his CPAP mask, but he reports it made it worse. Patient has a PMHx of COPD, asthma, and MS. EMS gave Duoneb x2 but held Decadron due to infection. EMS reports noting atrial fibrillation on the monitor and occasional PVCs and a BG 127. EMS gave 6L O2, which raised O2 sat to 98%. Patient smokes e-cigarettes. PSHx of three stents. He drank alcohol last night and is taking Eliquis. The patient rates the pain 0/ 10 in severity. Symptoms aggravated by nothing. Symptoms alleviated by EMS treatment of oxygen and Duoneb. Patient denies fever. - History of Current Complaint Chief Complaint: EDShortnessOfBreath Time Seen by Provider: 07/13/19 08:01 Hx Obtained From: Patient, EMS Onset/Duration: Gradual Onset, Lasting Days - Since 3 days ago, Still Present, Worse Since Timing: Constant Current Severity: Moderate Dyspnea At: Rest Aggravating Factors: Nothing Alleviating Factors: EMS Tx, Oxygen Associated Signs & Symptoms: Negative - Fever - Allergy/Home Medications Allergies/Adverse Reactions: Allergies Allergy/AdvReac Type Severity Reaction Status Date / Time acetaminophen Allergy GI Upset Verified 04/13/19 12:19 [From Darvocet-N] meperidine [From Demerol] Allergy GI Upset Verified 04/13/19 12:19 propoxyphene Allergy GI Upset Verified 04/13/19 12:19 [From Darvocet-N] PMH/Surg Hx/FS Hx/Imm Hx Endocrine/Hematology History: Reports: Hx Thyroid Disease - dx 2013, MD appt today to discuss Denies: Hx Diabetes Cardiovascular History: Reports: Hx Angina, Hx Hypertension, Hx Myocardial Infarction Respiratory History: Reports: Hx Asthma, Hx Chronic Obstructive Pulmonary Disease (COPD), Hx Sleep Apnea GI History: Reports: Hx Gastroesophageal Reflux Disease, Hx Ulcer History: Reports: Other Problems/Disorders - nocturnal frequency Musculoskeletal History: Reports: Hx Back Problems Sensory History: Reports: Hx Contacts or Glasses Opthamlomology History: Reports: Hx Contacts or Glasses - Surgical History Surgery Procedure, Year, and Place: cardiac cath w/ stents April 2013 Hx Anesthesia Reactions: No - Immunization History Date of Tetanus Vaccine: Unknown Date of Influenza Vaccine: unknown Infectious Disease History: No Infectious Disease History: Denies: Hx Hepatitis, Hx Human Immunodeficiency Virus (HIV), Traveled Outside the [place] in Last 30 Days - Family History Known Family History: Positive: Hypertension - Social History Alcohol Use: Occasionally Hx Substance Use: No Substance Use Type: Reports: None Hx Tobacco Use: Yes Smoking Status (MU): Current Every Day Smoker Type: eCigarettes Amount Used/How Often: Less then 1/2 PPD Length of Time of Smoking/Using Tobacco: quit cigarettes 2 months ago; using electronic cigarettes currently Have You Smoked in the Last Year: No Review of Systems Negative: Fever Positive: Shortness Of Breath All Other Systems Reviewed And Are Negative: Yes Physical Exam - Summary Physical Exam Summary: VITAL SIGNS: Reviewed. GENERAL: Patient is a well-developed and nourished male who is lying comfortable in the stretcher. Patient is not in any acute respiratory distress. HEAD AND FACE: No signs of trauma. No ecchymosis, hematomas or skull depressions. No sinus tenderness. EYES: PERRLA, EOMI x 2, No injected conjunctiva, no nystagmus. EARS: Hearing grossly intact. Ear canals and tympanic membranes are within normal limits. MOUTH: Oropharynx within normal limits. NECK: Supple, trachea is midline, no adenopathy, no JVD, no carotid bruit, no c- spine tenderness, neck with full ROM. CHEST: Symmetric, no tenderness at palpation. LUNGS: decreased breath sounds bilaterally, slight wheezing, speaking in partial sentences CVS: Irregularly irregular rate and rhythm, S1 and S2 present, no murmurs or gallops appreciated. ABDOMEN: Soft, non-tender. No signs of distention. No rebound, no guarding, and no masses palpated. Bowel sounds are normal. EXTREMITIES: FROM in all major joints, no edema, no cyanosis or clubbing. NEURO: Alert and oriented x 3. No acute neurological deficits. Speech is normal and follows commands. SKIN: Dry and warm. Triage Information Reviewed: Yes Vital Signs On Initial Exam: Initial Vitals Temp Pulse Resp BP Pulse Ox 98.7 F 85 22 138/85 98 07/13/19 08:00 07/13/19 08:00 07/13/19 08:00 07/13/19 08:00 07/13/19 08:00 Vital Signs Reviewed: Yes Diagnostics - Vital Signs Vital Signs Temp Pulse Resp BP Pulse Ox 07/13/19 08:00 98.7 F 85 22 138/85 98 - Laboratory Result Diagrams: 07/13/19 08:37 07/13/19 08:37 Lab Statement: Any lab studies that have been ordered have been reviewed, and results considered in the medical decision making process. - Radiology CXR Radiology Interpretation Completed By: Radiologist Summary of Radiographic Findings: No active cardiopulmonary disease is noted. Dr. Rudd has reviewed this radiology report. - EKG 0813 Cardiac Rate: NL - 94 BPM EKG Rhythm: Atrial Fibrillation Summary of EKG Findings: Atrial fibrillation at 94 BPM, no ST elevations, occasional PVCs, similar to previous taken 04/13/19. Re-Evaluation - Re-Evaluation First Eval Re-Evaluation Time: 11:19 Change: Improved Comment: With treatment, patient reports feeling better. Discussed results with patient. Patient will be discharged home with dx of COPD exacerbation. Patient understands and agrees with this plan. Course/Dx - Course Assessment/Plan: Initially the patient was given DuoNebs by EMS. At arrival to the emergency department the patients saturation is 94%. He reports that he is feeling better. Patient was given additional DuoNebs and Solu-Medrol. Test results without any significant abnormality except for glucose of 115 and total protein of 6.1. Urinalysis is negative for UTI. Chest x-ray shows no acute cardiopulmonary disease. ABG within normal limits. The pH is 7.4, PCO2 37, PO2 95 and O2 sat is 98.1. Since the patient is feeling better, he is not hypoxic and he doesnt have any infection the patient will be discharged home with follow-up with primary care physician. The patient will be given a prescription for prednisone since he has all the breathing treatments. At this point the patient is hemodynamically stable alert and oriented 3. - Diagnoses Provider Diagnoses: COPD exacerbation Discharge ED - Sign-Out/Discharge Documenting (check all that apply): Patient Departure - Discharge Patient Received Moderate/Deep Sedation with Procedure: No - Discharge Plan Condition: Stable Disposition: HOME Prescriptions: predniSONE TAB* [Deltasone 20 MG TAB*] 40 mg PO DAILY #8 tab Patient Education Materials: COPD (Chronic Obstructive Pulmonary Disease) (ED) , Chronic Lung Disease and Infection Prevention (ED) Referrals: Ethan Davis MD [Primary Care Provider] - 3 Days Additional Instructions: FOLLOW UP WITH YOUR PRIMARY CARE PROVIDER WITHIN ONE WEEK. RETURN TO THE ED FOR ANY WORSENING OR NEW SYMPTOMS. - Billing Disposition and Condition Condition: STABLE Disposition: Home - Attestation Statements Document Initiated by Scribe: Yes Documenting Scribe: Ethan Calix Provider For Whom Mariana is Documenting (Include Credential): Miguel Ángel Rudd MD Scribe Attestation: Ethan Butts, scribed for Miguel Ángel Rudd MD on 07/13/19 at 1821. Scribe Documentation Reviewed: Yes Provider Attestation: The documentation as recorded by the Ethan donald accurately reflects the service I personally performed and the decisions made by me, Miguel Ángel Rudd MD Status of Scribe Document: Viewed
[2019-07-13 08:49] LABS: ABS Basophils 0.1 10^3/ul (0-0.2); ABS Lymphocytes 1.5 10^3/ul (1.0-4.8); ABS Monocytes 0.7 10^3/ul (0-0.8); ABS Neutrophils 5.6 10^3/ul (1.5-7.7); Eosinophil % 0.3 %; Hematocrit 43 % (42-52); Hemoglobin 14.5 g/dL (14.0-18.0); Lymphocyte % 18.7 %; Mean Corpuscular HGB Conc 34 g/dL (31-36); Mean Corpuscular Hemoglobin 30 pg (27-31); Mean Corpuscular Volume 89 fL (80-94); Mean Platelet Volume 7.1 fL (7.4-10.4); Nucleated Red Blood Cells % 0.1; Platelet Count 259 10^3/uL (150-450); Red Blood Count 4.82 10^6 /uL (4.18-5.48); Red Cell Distribution Width 13 % (10-15); White Blood Count 7.9 10^3/uL (3.5-10.8)
[2019-07-13 09:01] LABS: Activated Partial Thrombo Time 35.2 seconds (26.0-38.0); INR 1.21 (0.82-1.09)
[2019-07-13 09:08] LABS: Albumin 3.9 g/dL (3.2-5.2); Albumin/Globulin Ratio 1.8 (1-3); BUN/Creatinine Ratio 20.8 (8-20); C Reactive Protein 7.74 mg/L (<8.01); Calcium 9.1 mg/dL (8.6-10.3); EGFR African American 123.9 (>60); EGFR Non-African American 102.4 (>60); Globulin 2.2 g/dL (2-4); Potassium 4.1 mmol/L (3.5-5.0); Total Bilirubin 0.5 mg/dL (0.2-1.0); Total Protein 6.1 g/dL (6.4-8.9)
[2019-07-13 09:09] LABS: Troponin I 0.01 ng/mL (<0.04)
[2019-07-13 09:11] LABS: CKMB ng/mL 2.2 ng/mL (0.6-6.3)
[2019-07-13 09:45] LABS: Urine Appearance Clear; Urine Bacteria Absent (Absent); Urine Bilirubin Negative (Negative); Urine Blood 1+ (Negative); Urine Color Yellow; Urine Glucose Negative (Negative); Urine Ketones Negative (Negative); Urine Nitrite Negative (Negative); Urine Protein Negative (Negative); Urine Red Blood Cell Trace(0-2/hpf) (Absent); Urine Specific Gravity 1.014 (1.010-1.030); Urine Squamous Epithelial Cell Present (Absent); Urine Urobilinogen Negative (Negative); Urine White Blood Cell Trace(0-5/hpf) (Absent)
[2019-07-13] MEDS ORDERED: Albuterol/Ipratropium NEB.SOL* Albuterol 2.5 MG/Ipratropium 0.5 MG 3 ML INH ONE (10:30)
[2019-07-13 11:36] VITALS: BP 135/89
== END 2019-07-13 11:35 | disposition home or self-care (01) ==
LOC: ED 07:59
DX: J44.1 Chronic obstructive pulmonary disease with (acute) exacerbation (principal); I25.2 Old myocardial infarction; E07.9 Disorder of thyroid, unspecified; I10 Essential (primary) hypertension; K21.9 Gastro-esophageal reflux disease without esophagitis; F17.290 Nicotine dependence, other tobacco product, uncomplicated; Z79.01 Long term (current) use of anticoagulants; Z79.82 Long term (current) use of aspirin; Z79.899 Other long term (current) drug therapy; Z88.6 Allergy status to analgesic agent; Z88.5 Allergy status to narcotic agent
CPT/HCPCS: 36415; 71046; 80053; 81003; 81015; 82550; 82553; 82803; 83605; 83880; 84484; 85025; 85610; 85730; 86140; 87040; 87086; 93005; 96361; 96374; 99284; A9270-GY; J2930